=== PATIENT | female | born 1985 | race Caucasian/White ===

== ENCOUNTER 2016-10-23 16:57 | Observation (INO) | payer OTHER ==
[~2016-10-23] VITALS: Ht 167.6 cm; Wt 95.8 kg
[~2016-10-23 16:57] MED LIST: COLLAGEN PLUS1 EACH PO; CRANBERRY TABL1 EACH PO; DILAUDID2 MG PO; HYDROCHLOROTHIA25 MG PO; KLOR-CON M2020 MEQ PO; LEXAPRO10 MG PO; LEXAPRO20 MG PO; METFORMIN HCL500 M1 PO; VITAMIN E400 UNIT PO; ZANTAC150 MG PO
[2016-10-23] MEDS ORDERED: GABAPENTIN300 MG PO (18:07)
[2016-10-23] MEDS ORDERED: NABUMETONE500 MG PO (18:08)
[2016-10-23 18:52] LABS: EOSINOPHIL (%) 4.8 % (0-5); EOSINOPHIL COUNT 0.3 K/uL (0-0.3); HEMATOCRIT 36.5 % (36.0-46.0); IMMATURE GRANULOCYTE (%) 0.2 % (0.0-0.7); IMMATURE GRANULOCYTE COUNT 0.1 K/uL; LYMPHOCYTE COUNT 2.3 K/uL (1.0-2.8); MCH 28.7 PG (29.0-34.0); MCHC 35.3 G/DL (30.0-36.0); MCV 81.1 FL (83-99); MEAN PLAT.VOLUME 9.9 uM^3 (9.5-12.4); MONOCYTE (%) 7.4 % (3-12); MONOCYTE COUNT 0.5 K/uL (0-0.8); NEUTROPHIL (%) 50.3 % (45-76); NEUTROPHIL COUNT 3.1 K/uL (1.8-6.4); PLATELET COUNT 276 K/uL (156-360); RBC DIS.WIDTH-CV 14.6 % (11.8-14.6); RBC DIS.WIDTH-SD 41.8 % (39-53); WHITE BLOOD COUNT 6.2 K/uL (4.1-10.2)
[2016-10-23 19:31] LABS: CHLORIDE 106 mEq/L (99-109); POTASSIUM 3.7 mEq/L (3.7-5.4); SODIUM 141 mEq/L (136-147)
[2016-10-23 19:33] LABS: GLUCOSE 92 mg/dL (70-99)
[2016-10-23 19:34] LABS: ANION GAP 9 MEQ/L (2-14)
[2016-10-23 19:35] LABS: TOTAL BILIRUBIN 0.2 mg/dL (0.0-1.0)
[2016-10-23 19:37] LABS: ALKALINE PHOSPHATASE 65 IU/L (3-129); GFR ESTIMATE (CALCULATED) > 59 mL/min/
[2016-10-23 19:38] LABS: UREA NITROGEN (BUN) 9 mg/dL (9-23)
[2016-10-23 21:31] LABS: TROP-I INTERPRETATION NEGATIVE; TROPONIN-I < 0.01 ng/mL (0.0-0.30)
[2016-10-23 22:05] LABS: APPEARANCE CLEAR/COLORLESS; RED CELL AREA COUNTED 19; RED CELL COUNT 0 /MM^3 (0-1); RED CELL DILUTION 1; WBC AREA COUNTED 18; WBC DILUTION 1; WHITE CELL COUNT 0 /MM^3 (0-5); WHITE CELL RAW COUNT 0
[2016-10-23] MEDS ORDERED: MELATONIN10 M1 PO (22:15)
[2016-10-23] MEDS ORDERED: VITAMIN D-32000 UNI2 PO (22:18)
[2016-10-23] MEDS ORDERED: BENADRYL25 MG PO (22:18)
[2016-10-23] MEDS ORDERED: TYLENOL EXTRA500 MG PO (22:19)
[2016-10-23] MEDS ORDERED: ZANTAC150 MG PO (22:21)
[2016-10-24 01:16] VITALS: BP 130/73
[2016-10-24 03:50] VITALS: BP 138/67
[2016-10-24 06:35] LABS: HEMATOCRIT 36.4 % (36.0-46.0); MCH 27.2 PG (29.0-34.0); MCHC 32.7 G/DL (30.0-36.0); MCV 83.3 FL (83-99); MEAN PLAT.VOLUME 10.5 uM^3 (9.5-12.4); PLATELET COUNT 314 K/uL (156-360); RBC DIS.WIDTH-CV 14.9 % (11.8-14.6); RBC DIS.WIDTH-SD 44.7 % (39-53); RED BLOOD COUNT 4.37 M/uL (3.80-5.20); WHITE BLOOD COUNT 7.4 K/uL (4.1-10.2)
[2016-10-24 07:01] LABS: ANION GAP 11 MEQ/L (2-14); CHLORIDE 104 MEQ/L (99-109); GFR ESTIMATE (CALCULATED) > 59 mL/min/; GLUCOSE 110 mg/dL (70-99); POTASSIUM 3.9 MEQ/L (3.7-5.4); SAMPLE HEMOLYSIS CHECK 0; SAMPLE ICTERIC CHECK 0; SAMPLE LIPEMIA CHECK 0; SODIUM 140 MEQ/L (136-147); UREA NITROGEN (BUN) 11 mg/dL (9-23)
[2016-10-24 08:30] VITALS: BP 128/76
[2016-10-24 08:39] LABS: ALKALINE PHOSPHATASE 55 IU/L (3-129); TOTAL BILIRUBIN 0.2 MG/DL (0.0-1.0)
[2016-10-24 11:00] VITALS: BP 136/89
[2016-10-24] MEDS ORDERED: PROPRANOLOL HCL60 MG PO (13:51)
[2016-10-24] MEDS ORDERED: IMITREX25 MG PO (13:52)
== END 2016-10-24 15:04 | disposition home or self-care (01) ==
LOC: EME 16:57 → EDOF 23:30 → 5WEST 10-24 00:49
PROVIDERS: Emergency Medicine; Hospitalist
PROC: 009U3ZX Drainage of Spinal Canal, Percutaneous Approach, Diagnostic (ICD-10-PCS; principal; 2016-10-23)
DX: G43.909 Migraine, unspecified, not intractable, without status migrainosus (principal); E66.9 Obesity, unspecified; Z68.34 Body mass index [BMI] 34.0-34.9, adult
CPT/HCPCS: 70450; 70551; 80048; 80053; 80076; 81003; 82945; 84157; 84484; 85025; 85027; 87070; 87205; 89051; 93005; 99281; 99285; G0378; J0360; J1170; J2060; J2270; J2405; J2765; J7050